=== PATIENT | female | born 1980 | race African-American/Black ===

== ENCOUNTER 2019-03-12 01:25 | Emergency (ER) | payer BC, OTHER ==
[2019-03-12] MEDS ORDERED: KETOROLAC TROMETHAMINE INJ/PF 30 MG/1 ML SDV IV ONE (02:51)
[2019-03-12] MEDS ORDERED: DEXAMETHASONE SOD PHOS INJ 10 MG/1 ML VIAL IV ONE (02:51)
[2019-03-12] MEDS ORDERED: NORMAL SALINE 1000 ML 1,000 ML IV ONE (02:51)
[2019-03-12 02:56] LABS: ABSOLUTE LYMPHOCYTES (AUTO) 0.5 10^3/uL (0.5-4.7); ABSOLUTE NEUT (AUTO) 6.7 10^3/uL (1.7-8.2); BASOPHILS % (AUTO) 0.3 % (0-2); EOSINOPHILS % (AUTO) 0.1 % (0-6); HEMOGLOBIN 11.5 g/dL (12.0-15.5); LYMPHOCYTES % (AUTO) 6.2 % (13-45); MEAN CORPUSCULAR HEMOGLOBIN 26.2 pg (27.0-33.4); MEAN CORPUSCULAR HGB CONC 32.8 g/dL (32.0-36.0); MEAN CORPUSCULAR VOLUME 80 fl (80-97); MONOCYTES % (AUTO) 12.3 % (3-13); PLATELET COUNT 166 10^3/uL (150-450); RED BLOOD COUNT 4.38 10^6/uL (3.72-5.28); RED CELL DISTRIBUTION WIDTH 13.2 % (11.5-14.0); SEGMENTED NEUTROPHILS % (AUTO) 81.1 % (42-78); TOTAL CELLS COUNTED % (AUTO) 100 %; WHITE BLOOD COUNT 8.2 10^3/uL (4.0-10.5)
[2019-03-12 03:06] LABS: ANION GAP 9 (5-19); BLOOD UREA NITROGEN 10 mg/dL (7-20); CALCIUM 8.8 mg/dL (8.4-10.2); CARBON DIOXIDE 29 mmol/L (22-30); CHLORIDE 98 mmol/L (98-107); GLUCOSE 104 mg/dL (75-110); POTASSIUM 3.1 mmol/L (3.6-5.0)
--- NOTE | 2019-03-12 03:39 | RADIOLOGY REPORT (SQ) ---
Chest 2 view on 03/12/2019 at 3:35 AM CLINICAL INDICATION: Fever, chest pain COMPARISON: None FINDINGS: The lungs are clear. Cardiac, hilar and mediastinal contours are within normal limits. Pulmonary vascularity is within normal limits. No bony abnormality is noted. IMPRESSION: No active disease.
--- NOTE | 2019-03-12 03:59 | ER Document Report ---
ED Fever - General Chief Complaint: Fever Stated Complaint: FEVER/CHEST DISCOMFORT Time Seen by Provider: 03/12/19 02:39 Primary Care Provider: DONNIE ROSE FNP [Primary Care Provider] - Follow up as needed Notes: Patient is a 38-year-old female that comes the emergency department for chief complaint of a fever and sore throat. Symptoms started approximately 4 days ago with chills, developed into a sore throat, then she started running fevers. She was seen yesterday by urgent care, diagnosed with probable strep even though the test was negative, started on amoxicillin. She has taken 1 dose. She states that tonight she felt really tired, she felt a vague discomfort over the right side of her chest (she points), and she hurt everywhere so she decided to come in to be evaluated. She denies headache, difficulty swallowing, shortness of breath, abdominal pain. She is treated for hypertension. She denies any current symptoms except for generalized body aches and sore throat. TRAVEL OUTSIDE OF THE [place] IN LAST 30 DAYS: No - Related Data Allergies/Adverse Reactions: No Known Allergies Allergy (Unverified 03/12/19 02:34) Past Medical History - General Information source: Patient - Social History Smoking Status: Never Smoker Frequency of alcohol use: None Drug Abuse: None Lives with: Family Family History: Reviewed & Not Pertinent Patient has suicidal ideation: No Patient has homicidal ideation: No Past Surgical History: Reports: Hx Hysterectomy - Immunizations Immunizations up to date: Yes Hx Diphtheria, Pertussis, Tetanus Vaccination: Yes Review of Systems - Review of Systems Constitutional: See HPI EENT: See HPI Cardiovascular: No symptoms reported Respiratory: See HPI Gastrointestinal: No symptoms reported Genitourinary: No symptoms reported Female Genitourinary: No symptoms reported Musculoskeletal: No symptoms reported Skin: No symptoms reported Hematologic/Lymphatic: No symptoms reported Neurological/Psychological: No symptoms reported Physical Exam - Vital signs Vitals: Temp Pulse Resp BP Pulse Ox 102.5 F H 114 H 24 H 94/70 L 95 03/12/19 01:31 03/12/19 01:31 03/12/19 01:31 03/12/19 01:31 03/12/19 01:31 - Notes Notes: GENERAL: Alert, interacts well. No acute distress. HEAD: Normocephalic, atraumatic. EYES: Pupils equal, round, and reactive to light. Extraocular movements intact. ENT: Oral mucosa moist, tongue midline. Exudative pharyngitis noted worse on the left but normal uvula and airway patent. No evidence of peritonsillar abscess. Nares patent, no nasal septal hematoma, TM's intact. NECK: Full range of motion. Supple. Trachea midline. Bilateral anterior cervical adenopathy worse on the left. Submandibular area is normal. LUNGS: Clear to auscultation bilaterally, no wheezes, rales, or rhonchi. No respiratory distress. HEART: Regular rate and rhythm. No murmur ABDOMEN: Soft, non-tender. Non-distended. Bowel sounds present in all 4 quadrants. GENITOURINARY: Deferred EXTREMITIES: Moves all 4 extremities spontaneously. No edema, normal radial and dorsalis pedis pulses bilaterally. No cyanosis. BACK: no cervical, thoracic, lumbar midline tenderness. No saddle anesthesia, normal distal neurovascular exam. Moves all extremities in full range of motion. NEUROLOGICAL: Alert and oriented x3. Normal speech. Cranial nerves II through XII grossly intact. PSYCH: Normal affect, normal mood. SKIN: Warm, dry, normal turgor. No rashes or lesions noted. Course - Re-evaluation Re-evalutation: Patient is not tachycardic on my exam. She does have exudative pharyngitis with anterior cervical adenopathy. No evidence of abscess. Treated for fever, given IV fluids, dexamethasone, Toradol. CBC shows microcytosis with elevation of neutrophils. Chemistry unremarkable. [place] is negative. Patient has a strep culture pending with urgent care reportedly and she has been started on amoxicillin. On reevaluation patient states she feels much better, she is tolerating p.o. without difficulty, her vital signs are unremarkable. Patient will continue her amoxicillin, has been treated with dexamethasone, discussed expectations, follow-up, and return precautions. Patient states understanding and agreement. Stable at time of discharge. - Vital Signs Vital signs: Temp Pulse Resp BP Pulse Ox 99.1 F 114 H 20 119/72 99 03/12/19 03:26 03/12/19 01:31 03/12/19 04:01 03/12/19 04:01 03/12/19 04:01 - Laboratory Result Diagrams: 03/12/19 02:30 03/12/19 02:30 Laboratory results interpreted by me: 03/12/19 03/12/19 02:30 02:30 Hgb 11.5 L Hct 35.0 L MCH 26.2 L Lymph % (Auto) 6.2 L Seg Neutrophils % 81.1 H Sodium 136.4 L Potassium 3.1 L Discharge - Discharge Clinical Impression: Exudative pharyngitis, Anterior cervical adenopathy Fever Qualifiers: Fever type: unspecified Qualified Code(s): R50.9 - Fever, unspecified Condition: Stable Disposition: HOME, SELF-CARE Additional Instructions: Your work-up is nonspecific. Your chest x-ray is normal. Your evaluation shows a throat infection which appears to be the cause of your symptoms. I suspect this is bacterial, I do recommend that you complete your antibiotic treatment. You have been treated with dexamethasone. Take Tylenol and ibuprofen for fever/pain, drink plenty fluids and rest. Avoid contact with others because you are contagious until 24 hours after the fever resolves. Return if you worsen including difficulty breathing, difficulty swallowing, spiking fevers, severe abdominal pain, or any other concerning or worsening symptoms. Forms: Return to Work Referrals: DONNIE ROSE FNP [Primary Care Provider] - Follow up as needed
[2019-03-12 04:02] VITALS: BP 119/72
== END 2019-03-12 04:15 | disposition home or self-care (01) ==
LOC: ER 01:25
DX: J02.9 Acute pharyngitis, unspecified (principal); R59.0 Localized enlarged lymph nodes; R50.9 Fever, unspecified; R53.83 Other fatigue; D72.828 Other elevated white blood cell count; R09.89 Other specified symptoms and signs involving the circulatory and respiratory systems; I10 Essential (primary) hypertension; Z79.899 Other long term (current) drug therapy
CPT/HCPCS: 99283; 96361; 96374; 96375; 36415; 84703; 85025; 86308; 80048; 71046; J1885; J7030; J1100